=== PATIENT | female | born 1990 | race Caucasian/White ===

== ENCOUNTER 2017-04-13 21:10 | Emergency (ER) | payer OTHER ==
[~2017-04-13] VITALS: Ht 165.1 cm; Wt 87.7 kg
[~2017-04-13 21:10] MED LIST: AMETHIA 0.15-01 EACH PO; KEFLEX500 MG PO; NO HOME MEDS; ZANTAC150 MG PO; ZOFRAN ODT4 MG PO
[2017-04-13 21:39] LABS: HEMATOCRIT 41.7 % (36.0-46.0); MCH 28.9 PG (29.0-34.0); MCHC 33.6 G/DL (30.0-36.0); PLATELET COUNT 267 K/uL (156-360); RBC DIS.WIDTH-SD 38.1 % (39-53); RED BLOOD COUNT 4.85 M/uL (3.80-5.20); WHITE BLOOD COUNT 8.5 K/uL (4.1-10.2)
[2017-04-13 21:49] LABS: ALBUMIN 4.2 g/dL (3.2-4.8)
[2017-04-13 21:50] LABS: CHLORIDE 107 mEq/L (99-109); POTASSIUM 4.1 mEq/L (3.7-5.4); SODIUM 137 mEq/L (136-147)
[2017-04-13 21:51] LABS: APPEARANCE SL.HAZY ((CLEAR)); BILIRUBIN NEGATIVE; BLOOD NEGATIVE; COLOR YELLOW ((YELLOW)); GLUCOSE (STRIP) NEGATIVE; KETONES NEGATIVE; LEUKOCYTES LARGE; NITRITE NEGATIVE; PROTEIN (STRIP) NEGATIVE; SPECIFIC GRAVITY 1.014 (1.000-1.030); UROBILINOGEN 0.2 MG/DL (0.2-1.0)
[2017-04-13 21:52] LABS: GLUCOSE 98 mg/dL (70-99); TOTAL PROTEIN 7.1 g/dL (6.4-8.3)
[2017-04-13 21:54] LABS: TOTAL BILIRUBIN 0.2 mg/dL (0.0-1.0)
[2017-04-13 21:55] LABS: ALKALINE PHOSPHATASE 62 IU/L (3-129)
[2017-04-13 21:56] LABS: CREATININE 0.8 mg/dL (0.6-1.3); GFR ESTIMATE (CALCULATED) > 59 mL/min/
[2017-04-13 21:56] LABS: BACTERIA NONE SEEN /HPF; EPITHELIAL CELLS 2+ /HPF; MUCUS TRACE /LPF; RED BLOOD CELLS 0-5 /HPF (0-5); UCUL ADDED? YES
[2017-04-13 21:57] LABS: AST (GOT) 17 IU/L (2-34); UREA NITROGEN (BUN) 6 mg/dL (9-23)
[2017-04-13 21:58] LABS: ALT (GPT) 18 IU/L (3-49)
[2017-04-13 22:04] LABS: QUANTITATIVE HCG < 4.0 MIU/ML
[2017-04-13 22:31] LABS: LIPASE 16 U/L (1.0-51.0)
[2017-04-14] MEDS ORDERED: BENTYL20 MG PO (00:24)
[2017-04-14] MEDS ORDERED: ZOFRAN ODT8 MG PO (00:24)
[2017-04-14 00:35] VITALS: BP 125/82
== END 2017-04-14 00:37 | disposition home or self-care (01) ==
LOC: EME 21:10
DX: R10.12 Left upper quadrant pain (principal); R11.0 Nausea; E86.0 Dehydration; K59.00 Constipation, unspecified; Z88.5 Allergy status to narcotic agent
CPT/HCPCS: 74177; 80053; 81003; 83690; 84702; 85027; 87086; 99281; 99285; J0500; J1885; J2405; J7030